=== PATIENT | female | born 1935 | race Caucasian/White ===

== ENCOUNTER 2017-09-17 10:46 | Emergency (ER) | payer MEDICARE ==
[2017-09-17] MEDS: DEXAMETHASONE SOD PHOS 4 MG/ML VIAL IM (11:27)
== END 2017-09-17 11:31 | disposition home or self-care (01) ==
LOC: PHEFT 10:46
DX: B86 Scabies (principal); I10 Essential (primary) hypertension; K21.9 Gastro-esophageal reflux disease without esophagitis
CPT/HCPCS: 96372; 99284-25